=== PATIENT | female | born 2000 | race Caucasian/White ===

== ENCOUNTER 2020-08-16 13:35 | Inpatient (IN) ==
--- NOTE | 2020-08-16 14:30 | Emergency Department Note ---
Impression & Plan Depression with suicidal ideation ED Provider Note NAME: WALTER HSIEH AGE: 19 SEX: F : 2000 ARRIVES VIA: Walk-In INFORMANT: Patient, ED PROVIDER(S): Rush Chapa MD Chief Complaint: Suicidal ideation HPI: Patient does state that she has longstanding history of depression but has had worsening suicidal ideation with plan to overdose on pills including her prescription medication and sleeping aids. The patient states that he/she last attempted suicide last July. The patient states that the last time she had an inpatient for treatment was during her time in the service in 2018. The patient states that she believes much of her depression is related to her time in the [employer] as she served for approximate 1 year [facility] in the [facility]. Patient denies any HI or AVH. The patient states she was recently started on Lexapro but this does not seem to be working. The patient states that Dr. Miranda her primary care physician has prescribed this. The patient is working and work is going well. The patient has had poor appetite and decreased sleep. The patient does live with her fianc and states that the relationship is fine. Patient denies fevers chills chest pains or shortness of breath. Patient denies any access to guns or weapons. ROS: See HPI for pertinent positives and negatives. A total of 10 systems were reviewed and otherwise negative. Past medical history: See below Surgical history: See below Social history: See below Physical Exam: GENERAL: Tired in appearance, wearing glasses and a mask. EYE EXAM: Normal conjunctiva. PERRL, no anisocoria and EOM's grossly intact w/o pain. NECK: Supple, no nuchal rigidity, no adenopathy, non-tender. No signs of meningismus. LUNGS: Clear to auscultation. Normal chest wall mechanics. HEART: NSR, no MRG. ABDOMEN: Abdomen soft, non-tender, normo-active bowel sounds, no masses, no rebound or guarding. BACK: No CVA TTP. SKIN: No rashes and no bruising. UPPER EXTREMITIES: Upper extremities are grossly normal. LOWER EXTREMITIES: Grossly normal, no edema. NEURO EXAM: A&O x3, cranial nerves II-XII grossly intact, normal speech, moves all 4 extremities on command w/o issue. Psych: Positive SI with plan, depressed mood, negative HI or AVH. Differential diagnoses: Mood disorder, infection, hypoglycemia, electrolyte abnormalities, cardiac sources, intracerebral event, toxicologic, trauma, neurologic, as well as other pathologies. Course: Patient was seen and evaluated the bedside. Full history physical exam was performed. MDM: Blood work was obtained along with urine, drug screen, talk screen and test. Patient was deemed medically cleared seen and evaluated by psych caser in. The patient was admitted to [facility]. is a voluntary inpatient psychiatric treatment patient. Patient was admitted to [facility]. Past Med/Surg History Medical History Appendicitis Depression Social History Smoking Status: Never smoker Tobacco Type: E-cigarettes / Vaping Preferred Language: Russian Feels Safe at Home: Yes Allergies Allergies Allergy/AdvReac Type Severity Reaction Status Date / Time No Known Allergies Allergy Verified 08/16/20 13:58 Home Meds Home Medications Medication Instructions Recorded Confirmed escitalopram oxalate [Lexapro] 10 mg PO DAILY 08/16/20 08/16/20 Results & Data (ED) Vital Signs Vital Signs - 24 hr 08/16/20 13:40 Temperature 36.8 C Temperature Source Oral Pulse Rate 84 Pulse Rhythm Regular Pulse Strength Normal Respiratory Rate 20 Blood Pressure 119/84 Blood Pressure Mean 95 Blood Pressure Position Sitting Pulse Oximetry 99 Sepsis Recent Fever Within 48 Hours No Sepsis New/Unexplained Change in Mental Status No Sepsis Action Taken by Nursing No Action Required Home Medications Current Medication List: was personally reviewed by me Laboratory Data Attestation: I reviewed the patient's lab results. Result diagrams: 08/16/20 14:31 08/16/20 14:31 Lab Results 08/16/20 08/16/20 08/16/20 Range/Units 14:25 14:25 14:25 WBC (4.8-10.8) K/uL RBC (4.2-5.4) M/uL Hgb (12.0-16.0) g/dL Hct (37-47) % MCV (80-100) fL MCH (25-34) pg MCHC (32-36) g/dL RDW Std Deviation (36.4-46.3) fL RDW Coeff of Moraima (11.5-14.5) % Plt Count (130-400) K/uL MPV (7.4-10.4) fL Immature Gran % (Auto) % Neut % (Auto) % Lymph % (Auto) % [place] % (Auto) % Eos % (Auto) % Baso % (Auto) % Neut # (Auto) (1.4-6.5) K/uL Lymph # (Auto) (1.2-3.4) K/uL [place] # (Auto) (0.11-0.59) K/uL Eos # (Auto) (0-0.5) K/uL Baso # (Auto) (0-0.2) K/uL Immature Gran # (Auto) (0.00-0.02) K/uL Sodium (136-145) mmol/L Potassium (3.5-5.1) mmol/L Chloride (98-107) mmol/L Carbon Dioxide (21-32) mmol/L Anion Gap (3-11) BUN (7-18) mg/dl Creatinine (0.6-1.2) mg/dl Est Cr Clr Drug Dosing ml/min Est GFR ( Amer) Est GFR (Non-Af Amer) BUN/Creatinine Ratio (10-20) Glucose (70-99) mg/dl Calcium (8.5-10.1) mg/dl Total Bilirubin (0.2-1) mg/dl AST (15-37) U/L ALT (12-78) U/L Alkaline Phosphatase (45-117) U/L Total Protein (6.4-8.2) gm/dl Albumin (3.4-5.0) gm/dl Globulin (2.5-4.0) gm/dl Albumin/Globulin Ratio (0.9-2) TSH (0.300-4.500) uIu/ml Urine Color Yellow Urine Appearance Clear (Clear) Urine pH 7.0 (4.5-7.5) Ur Specific [place] 1.012 (1.000-1.030) Urine Protein Negative (Negative) Urine Glucose (UA) Negative (Negative) Urine Ketones Negative (Negative) Urine Blood Negative (Negative) Urine Nitrite Negative (Negative) Urine Bilirubin Negative (Negative) Urine Urobilinogen Negative (Negative) Ur Leukocyte Esterase Negative (Negative) POC Ur Test NEG (NEG) Salicylates (2.8-20) mg/dl Urine Opiates Screen Neg (Neg) Ur Methadone, Qual Neg (Neg) Acetaminophen (10-30) ug/ml Urine Barbiturates Neg (Neg) Ur Phencyclidine (PCP) Neg (Neg) U Amphetamin/Meth Scrn Neg (Neg) MDMA (Ecstasy) Screen Neg (Neg) U Benzodiazepines Scrn Neg (Neg) Ur Cocaine Metabolite Neg (Neg) U Marijuana (THC) Screen Neg (Neg) Ethyl Alcohol mg/dL (0-3) mg/dl SARS-CoV-2 Ag (Rapid) (Negative) 08/16/20 08/16/20 08/16/20 Range/Units 14:31 14:31 14:31 WBC 6.38 (4.8-10.8) K/uL RBC 5.06 (4.2-5.4) M/uL Hgb 16.1 H (12.0-16.0) g/dL Hct 44.6 (37-47) % MCV 88.1 (80-100) fL MCH 31.8 (25-34) pg MCHC 36.1 H (32-36) g/dL RDW Std Deviation 40.9 (36.4-46.3) fL RDW Coeff of Moraima 12.8 (11.5-14.5) % Plt Count 313 (130-400) K/uL MPV 10.1 (7.4-10.4) fL Immature Gran % (Auto) 0.2 % Neut % (Auto) 56.7 % Lymph % (Auto) 29.9 % [place] % (Auto) 6.9 % Eos % (Auto) 5.0 % Baso % (Auto) 1.3 % Neut # (Auto) 3.62 (1.4-6.5) K/uL Lymph # (Auto) 1.91 (1.2-3.4) K/uL [place] # (Auto) 0.44 (0.11-0.59) K/uL Eos # (Auto) 0.32 (0-0.5) K/uL Baso # (Auto) 0.08 (0-0.2) K/uL Immature Gran # (Auto) 0.01 (0.00-0.02) K/uL Sodium 141 (136-145) mmol/L Potassium 4.0 (3.5-5.1) mmol/L Chloride 108 H (98-107) mmol/L Carbon Dioxide 29 (21-32) mmol/L Anion Gap 5.0 (3-11) BUN 12 (7-18) mg/dl Creatinine 0.85 (0.6-1.2) mg/dl Est Cr Clr Drug Dosing 73.3 ml/min Est GFR ( Amer) 114.3 Est GFR (Non-Af Amer) 98.6 BUN/Creatinine Ratio 14.3 (10-20) Glucose 81 (70-99) mg/dl Calcium 10.2 H (8.5-10.1) mg/dl Total Bilirubin 0.7 (0.2-1) mg/dl AST 15 (15-37) U/L ALT 25 (12-78) U/L Alkaline Phosphatase 78 (45-117) U/L Total Protein 8.7 H (6.4-8.2) gm/dl Albumin 4.8 (3.4-5.0) gm/dl Globulin 3.9 (2.5-4.0) gm/dl Albumin/Globulin Ratio 1.2 (0.9-2) TSH 4.080 (0.300-4.500) uIu/ml Urine Color Urine Appearance (Clear) Urine pH (4.5-7.5) Ur Specific [place] (1.000-1.030) Urine Protein (Negative) Urine Glucose (UA) (Negative) Urine Ketones (Negative) Urine Blood (Negative) Urine Nitrite (Negative) Urine Bilirubin (Negative) Urine Urobilinogen (Negative) Ur Leukocyte Esterase (Negative) POC Ur Test (NEG) Salicylates < 1.7 L (2.8-20) mg/dl Urine Opiates Screen (Neg) Ur Methadone, Qual (Neg) Acetaminophen 9 L (10-30) ug/ml Urine Barbiturates (Neg) Ur Phencyclidine (PCP) (Neg) U Amphetamin/Meth Scrn (Neg) MDMA (Ecstasy) Screen (Neg) U Benzodiazepines Scrn (Neg) Ur Cocaine Metabolite (Neg) U Marijuana (THC) Screen (Neg) Ethyl Alcohol mg/dL (0-3) mg/dl SARS-CoV-2 Ag (Rapid) (Negative) 08/16/20 08/16/20 Range/Units 14:31 Unknown WBC (4.8-10.8) K/uL RBC (4.2-5.4) M/uL Hgb (12.0-16.0) g/dL Hct (37-47) % MCV (80-100) fL MCH (25-34) pg MCHC (32-36) g/dL RDW Std Deviation (36.4-46.3) fL RDW Coeff of Moraima (11.5-14.5) % Plt Count (130-400) K/uL MPV (7.4-10.4) fL Immature Gran % (Auto) % Neut % (Auto) % Lymph % (Auto) % [place] % (Auto) % Eos % (Auto) % Baso % (Auto) % Neut # (Auto) (1.4-6.5) K/uL Lymph # (Auto) (1.2-3.4) K/uL [place] # (Auto) (0.11-0.59) K/uL Eos # (Auto) (0-0.5) K/uL Baso # (Auto) (0-0.2) K/uL Immature Gran # (Auto) (0.00-0.02) K/uL Sodium (136-145) mmol/L Potassium (3.5-5.1) mmol/L Chloride (98-107) mmol/L Carbon Dioxide (21-32) mmol/L Anion Gap (3-11) BUN (7-18) mg/dl Creatinine (0.6-1.2) mg/dl Est Cr Clr Drug Dosing ml/min Est GFR ( Amer) Est GFR (Non-Af Amer) BUN/Creatinine Ratio (10-20) Glucose (70-99) mg/dl Calcium (8.5-10.1) mg/dl Total Bilirubin (0.2-1) mg/dl AST (15-37) U/L ALT (12-78) U/L Alkaline Phosphatase (45-117) U/L Total Protein (6.4-8.2) gm/dl Albumin (3.4-5.0) gm/dl Globulin (2.5-4.0) gm/dl Albumin/Globulin Ratio (0.9-2) TSH (0.300-4.500) uIu/ml Urine Color Urine Appearance (Clear) Urine pH (4.5-7.5) Ur Specific [place] (1.000-1.030) Urine Protein (Negative) Urine Glucose (UA) (Negative) Urine Ketones (Negative) Urine Blood (Negative) Urine Nitrite (Negative) Urine Bilirubin (Negative) Urine Urobilinogen (Negative) Ur Leukocyte Esterase (Negative) POC Ur Test (NEG) Salicylates (2.8-20) mg/dl Urine Opiates Screen (Neg) Ur Methadone, Qual (Neg) Acetaminophen (10-30) ug/ml Urine Barbiturates (Neg) Ur Phencyclidine (PCP) (Neg) U Amphetamin/Meth Scrn (Neg) MDMA (Ecstasy) Screen (Neg) U Benzodiazepines Scrn (Neg) Ur Cocaine Metabolite (Neg) U Marijuana (THC) Screen (Neg) Ethyl Alcohol mg/dL < 3.0 (0-3) mg/dl SARS-CoV-2 Ag (Rapid) Negative (Negative) Discharge Plan Visit Data Chief Complaint: Mental Health Evaluation Stated Complaint: MENTAL EVALUATION ED Provider: Rush Chapa Discharge Problem: Depression with suicidal ideation Forms Stand Alone Forms: My [facility], Suicide Prevention Resources Prescriptions Prescriptions: No Action escitalopram oxalate [Lexapro] 10 mg Tablet 10 mg PO DAILY RF: 0
[2020-08-16 14:48] LABS: Basophils # (auto) 0.08 K/uL (0-0.2); Basophils % (auto) 1.3 %; Eosinophils # (auto) 0.32 K/uL (0-0.5); Hematocrit (blood only) 44.6 % (37-47); Hemoglobin 16.1 g/dL (12.0-16.0); Immature Granulocytes # (auto) 0.01 K/uL (0.00-0.02); Immature Granulocytes % (auto) 0.2 %; Lymphocytes # (auto) 1.91 K/uL (1.2-3.4); Lymphocytes % (auto) 29.9 %; Mean Corpuscular Hemoglobin 31.8 pg (25-34); Mean Corpuscular Hgb Conc 36.1 g/dL (32-36); Mean Corpuscular Volume 88.1 fL (80-100); Mean Platelet Volume 10.1 fL (7.4-10.4); Monocytes # (auto) 0.44 K/uL (0.11-0.59); Monocytes % (auto) 6.9 %; Neutrophils # (auto) 3.62 K/uL (1.4-6.5); Neutrophils % (auto) 56.7 %; Platelet Count 313 K/uL (130-400); RDW Coefficient of Variation 12.8 % (11.5-14.5); RDW Standard Deviation 40.9 fL (36.4-46.3); Red Blood Count 5.06 M/uL (4.2-5.4); White Blood Count 6.38 K/uL (4.8-10.8)
[2020-08-16 14:53] LABS: Appearance Urine Clear (Clear); Bilirubin Urine Negative (Negative); Blood Urine Negative (Negative); Color Urine Yellow; Glucose Urine UA Negative (Negative); Ketones Urine Negative (Negative); Leukocyte Esterase Urine Negative (Negative); Nitrite Urine Negative (Negative); Protein Urine Negative (Negative); Specific Gravity Urine 1.012 (1.000-1.030); Urobilinogen Urine Negative (Negative)
[2020-08-16 15:06] LABS: Acetaminophen 9 ug/ml (10-30); Albumin Level 4.8 gm/dl (3.4-5.0); BUN Creatinine Ratio 14.3 (10-20); Calcium 10.2 mg/dl (8.5-10.1); Creatinine Clr Calc Pharmacy 73.3 ml/min; Est GFR (African American) 114.3; Est GFR (Non-African American) 98.6; Salicylate < 1.7 mg/dl (2.8-20)
[2020-08-16 15:12] LABS: Amphetamines+Metham, Urine Neg (Neg); Barbiturates, Urine Neg (Neg); Benzodiazepine, Urine Neg (Neg); Cocaine, Urine Neg (Neg); MDMA (Ecstacy), Urine Neg (Neg); Methadone, Urine Neg (Neg); Opiate, Urine Neg (Neg); Phencyclidine, Urine Neg (Neg)
[2020-08-16 15:16] LABS: Albumin Globulin Ratio 1.2 (0.9-2); Bilirubin,Total 0.7 mg/dl (0.2-1); Globulin 3.9 gm/dl (2.5-4.0); Thyroid Stimulating Hormone 4.08 uIu/ml (0.300-4.500); Total Protein 8.7 gm/dl (6.4-8.2)
[2020-08-16] MEDS ORDERED: hydrOXYzine HCl 25 MG TAB PO PRN (16:05)
[2020-08-16] MEDS ORDERED: BISMUTH SUBSALICYLATE LIQD 236 ML PO PRN (16:05)
[2020-08-16] MEDS ORDERED: ALUMINUM/MAGNESIUM SUSP 30 ML UDC PO PRN (16:05)
[2020-08-16] MEDS ORDERED: ACETAMINOPHEN 325 MG TAB PO PRN (16:05)
[2020-08-16] MEDS ORDERED: SODIUM CHLORIDE 0.65% NA SOLN 45 ML (OCEAN) PRN (16:05)
[2020-08-16] MEDS ORDERED: MAGNESIUM HYDROXIDE SUSP 30 ML UDC PO PRN (16:05)
[2020-08-16 18:15] VITALS: O2SAT 97
[2020-08-16] MEDS: NICOTINE POLACRILEX 2 MG GUM MT PRN (18:35)
[2020-08-17 06:40] VITALS: TEMP 97.7
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
[2020-08-17] MEDS: NICOTINE POLACRILEX 2 MG GUM MT PRN ×2 (09:49→21:23)
[2020-08-17] MEDS ORDERED: NICOTINE POLACRILEX 2 MG GUM MT PRN (10:03)
[2020-08-17] MEDS ORDERED: ONDANSETRON 4 MG OD TAB PO PRN (12:24)
[2020-08-17] MEDS: SERTRALINE HCL 50 MG TABLET PO SCH (21:09)
[2020-08-17] MEDS: hydrOXYzine HCl 25 MG TAB PO PRN ×2 (22:17→23:19)
[2020-08-18] MEDS: NICOTINE POLACRILEX 2 MG GUM MT PRN ×3 (10:20→21:22)
--- NOTE | 2020-08-18 12:14 | Psychiatric Progress Note ---
Date of Service August 18, 2020 Impression / Recommendations Impression 19-year-old engaged female with a history of childhood trauma, mood and anxiety symptoms who presents with suicidal ideation and a plan to overdose on medications in the context of multiple psychosocial stressors. Differential includes MDD, PTSD, BPD. Inpatient treatment is medically necessary due to the severity of symptoms and risk for suicide if discharged. 08/18/20 reviewed--improving. (1) Suicidal ideation: 08/17 -continue voluntary hospitalization, q15 min checks for safety, participate in groups and therapy, work on healthy coping skills and discharge safety plan. - Family meeting 08/18/20--reviewed. (2) Depression: 08/17 - Long h/o depressive symptoms, differential includes MDD, PTSD, BPD, bipolar II (although has some hypomanic symptoms, not sufficient to meet criteria for hypomania/bipolar II). Reviewed these with patient and discussed need for ongoing treatment and monitoring and that it may take some time to clarify the diagnosis. - Discussed treatment options of another SSRI trial vs mood stabilizer such as lamotrigine. She opted for another SSRI trial. Reviewed what to expect if medication is working, side effects, risks and benefits, and alternatives including no medication. Reviewed black box warning in young adults. Will start trial of sertraline, 25mg today to bedtime (as she reports pills often make her nauseated) and 50mg tomorrow. - Encourage group attendance and participation, work on healthy coping skills and discharge safety plan. - Coordinate with therapist Alysia White in [place] and re-refer for outpatient therapy and psychiatrist services. Reviewed 08/18/20. Continue current meds and treatment plan. Risk Factors Assessment Male: No : Yes Do You Have Access To A Gun?: No Health Problems: No Mental Health Diagnoses: Yes Substance Use Disorders: No Previous Attempt: No Previous Psychiatric Hospitalization: Yes Hopelessness: No Smoker: Yes Protective Factors Assessment : No Responsible for Young Children: No Employed: Yes (PPA) Stable Relationships: Yes (fiance) Supportive Family: Yes (mother) Good Rapport with Provider: No Interval History Chief Complaint "I'm tired this am but overall have felt better since I've been here". Review of Systems Sleep Information Total Hours of Sleep: 6 Meal Information Percent Meal Consumed - Breakfast: 50 Percent Meal Consumed - Lunch: 100 Percent Meal Consumed - Dinner: 100 Subjective Subjective Patient was seen & assessed and interval progress reviewed with nursing. Denies any thoughts about overdosing, no SI today and states that when thoughts did pop in yesterday she was clearly able to redirect them. Feels it's driven by anxiety like when she misses her fiance at work and then checks her phone repeatedly for the time. She needs a family meeting to discuss her safety plan following discharge and identifies work as a major stressor as she is on mandatory OT. Physical Exam Psychiatric Orientation: alert and cooperative Apperance: appropriately dressed, appropriately groomed and appeared stated age Eye Contact: + fair eye contact Motor Behavior: steady gait and station and no abnormal motor movements Speech: normal rate/rhythm/volume of speech Mood: + depressed mood Thought Process: goal directed thought process Thought Content: reality based without delusions Suicidal Thoughts: denies suicidal thoughts Homicidal Thoughts: denies homicidal thoughts Hallucinations: no auditory hallucinations and no visual hallucinations Cognition: recent memory grossly intact, attention grossly intact and language grossly intact Estimated Intelligence: consistent with education level Insight: + fair insight Judgement: + fair judgement Vital Signs (Past 24 Hours) Last Vital Signs Temp 36.5 C 08/18/20 06:42 Pulse 86 08/18/20 06:43 Resp 18 08/18/20 06:42 BP 105/65 08/18/20 06:43 Pulse Ox 97 08/16/20 18:04 Results & Data ([facility]) Current Inpatient Medications Current Inpatient Medications: Current Inpatient Medications Acetaminophen (Acetaminophen 325 Mg Tab) 650 mg PO Q4H PRN PRN Reason: Headache or Minor Fever Stop: 09/15/20 16:04 Last Admin: 08/17/20 23:19 Dose: 650 mg Documented by: Al Hydrox/Mg Hydrox/Simethicone (Aluminum/Magnesium Susp 30 Ml Udc) 30 ml PO Q4H PRN PRN Reason: GI Upset Stop: 09/15/20 16:04 Bismuth Subsalicylate (Bismuth Subsalicylate Liqd 236 Ml) 15 ml PO PRN PRN PRN Reason: Loose Stool Stop: 09/15/20 16:04 Hydroxyzine HCl (Hydroxyzine Hcl 25 Mg Tab) 50 mg PO HSZ PRN PRN Reason: Insomnia Stop: 09/15/20 16:04 Last Admin: 08/17/20 23:19 Dose: 50 mg Documented by: Hydroxyzine HCl (Hydroxyzine Hcl 25 Mg Tab) 25 mg PO Q4H PRN PRN Reason: Anxiety Stop: 09/15/20 16:04 Magnesium Hydroxide (Magnesium Hydroxide Susp 30 Ml Udc) 30 ml PO DAILY PRN PRN Reason: Constipation Stop: 09/15/20 16:04 Nicotine Polacrilex (Nicotine Polacrilex 2 Mg Gum) 1 piece MT PRN PRN PRN Reason: Nicotine Withdrawal Stop: 09/15/20 16:04 Last Admin: 08/18/20 10:20 Dose: 1 piece Documented by: Ondansetron HCl (Ondansetron 4 Mg Od Tab) 4 mg PO DAILY PRN PRN Reason: Nausea Stop: 09/16/20 12:23 Sertraline HCl (Sertraline Hcl 50 Mg Tablet) 25 mg PO HS DARIAN; Taper Stop: 09/16/20 21:59 Last Admin: 08/17/20 21:09 Dose: 25 mg Documented by: Sodium Chloride (Sodium Chloride 0.65% Na Soln 45 Ml ([place])) 1 - 2 sprays NA PRN PRN PRN Reason: Nasal Dryness/Congestion Stop: 09/15/20 16:04 Mental Health & Subst Abuse Tx Psychiatrist Name of Psychiatrist: [facility] Psychiatrist's Psychiatric Appointment Comment: [address] [place] [address] Therapist Name of Therapist: Krzysztof Rich - Miriam White Therapist's Therapy App[facility]ment [facility] [address] [employer] Name of Golf Club Repairer: None Post Discharge Appointments Primary Care Physician Name Of Family Doctor: [facility] - Dr Zhu Primary Care Provider Appointment Comment: [address] [place] [address] Contact Information Discharge Discharge Address: [address] [place] [address], [place] [id number] (1) Depression Active/Remission status: currently active Depression Type: major depressive disorder Major depression episode severity: severe Major depression recurrence: recurrent Psychotic features: without psychotic features Qualified Code(s): F33.2 - Major depressive disorder, recurrent severe without psychotic features
[2020-08-18] MEDS: SERTRALINE HCL 50 MG TABLET PO SCH (21:20)
[2020-08-19 06:36] VITALS: BP 101/68
[2020-08-19] MEDS: NICOTINE POLACRILEX 2 MG GUM MT PRN (07:50)
[2020-08-19 09:38] VITALS: PULSE 86
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
== END 2020-08-19 10:10 | disposition home or self-care (01) | DRG 885 ==
LOC: ED 13:35 → 3S 16:07